=== PATIENT | male | born 1970 | race Caucasian/White ===

== ENCOUNTER 2017-03-19 16:59 | Emergency (ER) | payer OTHER | END 2017-03-19 18:20 | disposition home or self-care (01) | LOC: ER1 16:59 | DX: S39.012A Strain of muscle, fascia and tendon of lower back, initial encounter (principal); I10 Essential (primary) hypertension; Z79.899 Other long term (current) drug therapy; X50.0XXA Overexertion from strenuous movement or load, initial encounter | CPT/HCPCS: 96372; 99283; J1100; J1885 ==

== ENCOUNTER → 2022-01-02 | Outpatient (CLI) | payer OTHER ==
[~2022-01-02] VITALS: Ht 175.3 cm; Wt 117.9 kg
[~2022-01-02] MED LIST: AMLODIPINE BESYL5 MG PO; ATORVASTATIN CA40 MG PO; LISINOPRIL10 MG PO; METOPROLOL SUCC25 MG PO; PANTOPRAZOLE SO40 MG PO
== END ==
LOC: EROP 11:48
DX: U07.1 COVID-19 (principal); Z23 Encounter for immunization; J98.4 Other disorders of lung; I10 Essential (primary) hypertension
CPT/HCPCS: M0247; Q0247

== ENCOUNTER → 2022-01-16 | Outpatient (CLI) | payer OTHER | LOC: KOH-I 09:39 | DX: R07.9 Chest pain, unspecified (principal) | CPT/HCPCS: 71046 ==

== ENCOUNTER → 2022-03-03 | Outpatient (CLI) | payer OTHER | LOC: US 13:23 | DX: R22.2 Localized swelling, mass and lump, trunk (principal) | CPT/HCPCS: 76641-LT ==

== ENCOUNTER → 2022-04-03 | Outpatient (CLI) | payer OTHER | LOC: CT 03-24 10:30 | DX: R22.2 Localized swelling, mass and lump, trunk (principal); I10 Essential (primary) hypertension; K80.20 Calculus of gallbladder without cholecystitis without obstruction | CPT/HCPCS: 36415; 71260; 82565; 84520; Q9967 ==